=== PATIENT | female | born 1980 | race Caucasian/White ===

== ENCOUNTER 2024-07-22 14:07 | Emergency (ER) | payer BC, OTHER ==
[~2024-07-22] VITALS: Ht 170.2 cm; Wt 80.2 kg
[2024-07-22 14:28] LABS: BILIRUBIN, URINE NEGATIVE (negative); BLOOD/HGB, URINE NEGATIVE (Negative); KETONE, URINE NEGATIVE (Negative); LEUK ESTERASE, URINE SMALL (negative); NITRITE, URINE NEGATIVE (negative)
[2024-07-22] MEDS ORDERED: KETOROLAC TROMETHAMINE 15 MG/ML VIAL IV ONE (14:30)
[2024-07-22] MEDS ORDERED: ondansetron HCL 4 MG/2 ML VIAL IV PRN (14:30)
[2024-07-22 14:35] LABS: CRYSTALS, URINE NONE SEEN (0-1+); RED BLOOD CELLS, URINE 0-1 /hpf (0-5)
[2024-07-22 14:36] LABS: BACTERIA, URINE NONE SEEN /hpf (negative); CASTS, URINE NONE SEEN \\lpf; COLLECTION TYPE, URINE CLEAN CATCH; EPITHELIAL CELLS, URINE SQUAMOUS 3+ /lpf (0-1+); REFLEX CULTURE, URINE No (No)
[2024-07-22 14:38] LABS: BASOPHILS 0.6 % (0-2); EOSINOPHILS 1.5 % (0-6); HEMATOCRIT 40.6 % (35.0-50.0); HEMOGLOBIN 14.1 g/dL (12.0-18.0); LYMPHOCYTES 17.2 % (24-44); MCH 29.5 (27-36); MCHC 34.8 g/dl (30-36); MCV 84.9 fl (81-99); MONOCYTES 5.8 % (0-12); NEUTROPHILS 74.9 % (39-80); PLATELET COUNT 218 K/uL (140-440); RBC 4.77 M/ul (4.3-5.7); RDW 13.2 (10.5-15.0)
[2024-07-22 14:52] LABS: ALBUMIN 4.1 g/dL (3.4-5.0); ALBUMIN/GLOBULIN RATIO 1.21 (1.1-2.4); ANION GAP 8.5 (7-21); BILIRUBIN, TOTAL 0.6 mg/dL (0.2-1.0); BUN/CREATININE RATIO 10.38 (6.0-28.6); CALCIUM 8.9 mg/dL (8.5-10.1); CREATININE, SERUM 0.77 mg/dL (0.55-1.02); POTASSIUM 3.5 mmol/L (3.5-5.1); PROTEIN, TOTAL 7.5 g/dL (6.4-8.2)
[2024-07-22] MEDS ORDERED: LABETALOL HCL 20 MG/4 ML VIAL IV ONE (15:30)
[2024-07-22] MEDS ORDERED: CIPRO500 MG PO (17:44)
[2024-07-22] MEDS ORDERED: METRONIDAZOLE500 MG PO (17:44)
[2024-07-22] MEDS ORDERED: metroNIDAZOLE 250 MG TAB PO ONE (17:45)
[2024-07-22] MEDS ORDERED: CIPROFLOXACIN 500 MG TAB PO ONE (17:45)
[2024-07-22 17:55] VITALS: BP 179/91
== END 2024-07-22 17:55 | disposition home or self-care (01) ==
LOC: ED 14:07
PROVIDERS: Emergency Medicine
DX: K57.32 Diverticulitis of large intestine without perforation or abscess without bleeding (principal)
CPT/HCPCS: 36415; 74177; 80053; 81001; 84703; 85025; 96375; 99284-25; J1885; J2405; Q9967